=== PATIENT | female | born 1985 | race American Indian/Alaskan Native ===

== ENCOUNTER 2016-06-16 09:45 | Emergency (ER) | payer MEDICAID ==
[2016-06-16 10:26] VITALS: BP 113/78
--- NOTE | 2016-06-16 10:58 | Emergency Department Report ---
Chief Complaint: Vaginal Bleeding Stated Complaint: STOMACH PAIN Time Seen by Provider: 06/16/16 10:54 - HPI History of Present Illness: Patient here complaining of positive home test 2. She says she had vaginal spotting on and off but she is not having any spotting this was 3 days ago. Her last menstrual period was 05/16/2016. She also reports that she was having urinary burning times one yesterday none today. Denies any vaginal discharge. Denies any abdominal pain. Denies any nausea or vomiting. Pain scale is 0 out of 10. - ROS Review of Systems: All systems are negative unless stated in HPI above. - Exam Vital Signs: Vital Signs 06/16/16 10:23 Temperature 98.1 F Pulse Rate 78 Respiratory 16 Rate Blood Pressure 113/78 O2 Sat by Pulse 99 Oximetry Physical Exam: General: This is a 30-year-old female in no acute distress Abdomen: Nontender to palpate in all quadrants. No guarding or rebound tenderness and normal bowel sounds. CV: S1, S2. Regular rate and rhythm. MSE screening note: Focused history and physical exam performed. Due to findings the following was ordered:see [facility] ED Medical Decision Making - Medical Decision Making Medical decision making: Patient seen by provider in triage area. Appropriate protocol activated and patient to main ED to be seen by physician. ED Disposition for MSE Condition: Stable
[2016-06-16 11:10] LABS: Basophils % (Auto) 1.8 % (0.0-1.8); Eosinophils % (Auto) 3.8 % (0.0-4.3); Hematocrit 41.7 % (30.3-42.9); Hemoglobin 13.9 gm/dl (10.1-14.3); Mean Corpuscular HGB Conc 33 % (30-34); Mean Corpuscular Hemoglobin 31 pg (28-32); Mean Corpuscular Volume 92 fl (79-97); Platelet Count 245 K/mm3 (140-440); Red Blood Count 4.55 M/mm3 (3.65-5.03); Red Cell Distribution Width 12.6 % (13.2-15.2); White Blood Count 4.1 K/mm3 (4.5-11.0)
[2016-06-16 12:13] LABS: Bacteria,Urine 1+ /HPF (Negative); Bilirubin,Urine NEG (Negative); Blood,Urine NEG (Negative); Ketones,Urine NEG (Negative); Leukocyte Esterase,Urine TR (Negative); Mucus,Urine FEW /HPF; Nitrite,Urine NEG (Negative); Protein,Urine <15 mg/dL mg/dL (Negative); Urobilinogen,Urine < 2.0 mg/dL (<2.0)
--- NOTE | 2016-06-18 19:31 | ED Elopement Review ---
ED Pt Elopement review - Results review Lab results: Laboratory Tests 06/16/16 06/16/16 06/16/16 10:59 10:59 10:59 WBC 4.1 L RBC 4.55 Hgb 13.9 Hct 41.7 MCV 92 MCH 31 MCHC 33 RDW 12.6 L Plt Count 245 Lymph % (Auto) 45.4 H [place] % (Auto) 11.7 H Eos % (Auto) 3.8 Baso % (Auto) 1.8 Lymph # 1.9 [place] # 0.5 Eos # 0.2 Baso # 0.1 Seg Neutrophils % 37.3 L Seg Neutrophils # 1.5 L HCG, Quant 1.77 Urine Color Urine Turbidity Urine pH Ur Specific [place] Urine Protein Urine Glucose (UA) Urine Ketones Urine Blood Urine Nitrite Urine Bilirubin Urine Urobilinogen Ur Leukocyte Esterase Urine WBC (Auto) Urine RBC (Auto) U Epithel Cells (Auto) Urine Bacteria (Auto) Urine Mucus Blood Type O POSITIVE Antibody Screen Negative 06/16/16 11:31 WBC RBC Hgb Hct MCV MCH MCHC RDW Plt Count Lymph % (Auto) [place] % (Auto) Eos % (Auto) Baso % (Auto) Lymph # [place] # Eos # Baso # Seg Neutrophils % Seg Neutrophils # HCG, Quant Urine Color Yellow Urine Turbidity Clear Urine pH 7.0 Ur Specific [place] 1.018 Urine Protein <15 mg/dl Urine Glucose (UA) Neg Urine Ketones Neg Urine Blood Neg Urine Nitrite Neg Urine Bilirubin Neg Urine Urobilinogen < 2.0 Ur Leukocyte Esterase Tr Urine WBC (Auto) 1.0 Urine RBC (Auto) 3.0 U Epithel Cells (Auto) 4.0 Urine Bacteria (Auto) 1+ Urine Mucus Few Blood Type Antibody Screen - Call Back decision Pt Call Back Decision: No action required
== END 2016-06-16 19:00 | disposition left against medical advice (07) ==
LOC: ED 09:45
DX: O26.851 Spotting complicating pregnancy, first trimester (principal); R10.9 Unspecified abdominal pain; Z3A.00 Weeks of gestation of pregnancy not specified; Z53.21 Procedure and treatment not carried out due to patient leaving prior to being seen by health care provider
CPT/HCPCS: 36415; 81001; 84702; 85025; 86850; 86900; 86901